=== PATIENT | female | born 1995 | race African-American/Black ===

== ENCOUNTER 2017-10-31 21:52 | Emergency (ER) | payer MEDICAID, OTHER ==
[~2017-10-31] VITALS: Ht 165.1 cm; Wt 53.0 kg
[~2017-10-31 21:52] MED LIST: IBUPROFEN
[2017-11-01] MEDS ORDERED: IBUPROFEN 600MG TABLET PO ONE (00:30)
[2017-11-01 01:12] VITALS: BP 103/69
== END 2017-11-01 02:44 | disposition home or self-care (01) ==
LOC: ER 21:52
DX: S40.212A Abrasion of left shoulder, initial encounter (principal); M79.605 Pain in left leg; F12.10 Cannabis abuse, uncomplicated; F17.200 Nicotine dependence, unspecified, uncomplicated; V49.88XA Car occupant (driver) (passenger) injured in other specified transport accidents, initial encounter; W22.10XA Striking against or struck by unspecified automobile airbag, initial encounter; Y93.89 Activity, other specified; Y92.89 Other specified places as the place of occurrence of the external cause; Y99.8 Other external cause status
CPT/HCPCS: 73030; 73590; 81025; 99284